=== PATIENT | female | born 1945 | race Caucasian/White ===

== ENCOUNTER → 2016-12-28 | Day surgery (SDC) | payer MEDICARE ==
[~2016-12-28] VITALS: Ht 188 cm; Wt 82.0 kg
[~2016-12-28] MED LIST: KLO5T PO; LISI10TA PO; Sodium Chloride LOK Flush 10 mL Syringe IV PRN; [UNRECOGNIZED DRUG - CODE] RC; fentaNYL-PF 50 mCg/mL 2 mL Inj IVPUSH PRN
[2016-12-28 10:07] VITALS: BP 118/73; PULSE 67; RESP 16; O2SAT 100
[2016-12-28] MEDS: 0.9% Sodium Chloride 1,000 ML IV SCH ×2 (10:44→11:00)
[2016-12-28 11:12] VITALS: BP 134/64; PULSE 73; RESP 16; O2SAT 99
[2016-12-28 11:31] VITALS: BP 160/85; PULSE 67; RESP 16; O2SAT 97
--- NOTE | 2016-12-28 11:48 | ENDO ---
[address] [address] ENDOSCOPY PROCEDURE PATIENT: PEGGY ROMERO : 1945 MR#: [id number] ADMIT: 12/28/2016 JOB ID: [id number] DATE OF SERVICE: 12/28/2016 PROCEDURE PERFORMED: Colonoscopy. INDICATIONS: Abdominal pain. History of ulcerative proctitis. ASA CLASSIFICATION: The patient's ASA classification is II. MALLAMPATI SCORE: Mallampati score was 2. MEDICATIONS: 1. Versed 4 mg. 2. Fentanyl 75 mcg. INSTRUMENT USED: PCF-H180AL. PREPARATION QUALITY: Fair. PROCEDURE DETAILS: After informed consent was obtained, the patient was brought into the GI suite, where he was placed on oxygen via nasal cannula and monitored with continuous pulse oximeter, telemetry, and blood pressure monitoring. A time-out was performed. Then, he was placed in the left lateral decubitus position and medications were administered for sedation. Digital rectal exam with palpation of the prostate was performed which was unremarkable. The colonoscope was then inserted into the rectum and advanced under direct visualization to the terminal ileum, which was identified by the presence of the ileocecal valve and villous appearing mucosa of the terminal ileum. Once the terminal ileum was reached, the colonoscope was withdrawn back into the rectum, as the mucosa and lumen were examined. In the rectum, retroflexion was performed. Following retroflexion, remaining air in the rectum was suctioned, and the procedure was completed. FINDINGS: 1. Normal appearing terminal ileum. Multiple random biopsies were obtained. 2. The colon mucosa from the cecum to approximately 25 cm appeared normal. Multiple random biopsies were obtained. 3. From 25 cm extending to the distal rectum the mucosa had a granular, erythematous appearance. There was loss of normal vascular pattern. Multiple random biopsies were obtained. IMPRESSION: Ulcerative sigmoid proctitis. RECOMMENDATIONS: 1. Rowasa enemas, and a short course of hydrocortisone enemas. 2. Follow up in GI clinic. COMPLICATIONS: None. ESTIMATED BLOOD LOSS: Less than 5 mL.
--- NOTE | 2017-01-03 11:23 | PATH ---
SURGICAL PATHOLOGY Attending Physician:Anyi Galindo CASE STATUS: Signed Out PATIENT NAME: PEGGY ROMERO PID: [id number] : 1945 DATE COLLECTED:12/28/2016 00:00 SPECIMEN: 1: Ileum, Biopsy 2: Colon, Biopsy 3: Colon, Biopsy 4: Colon, Biopsy 5: Rectum, Biopsy CLINICAL HISTORY: 1). TERMINAL ILEUM BIOPSY 2). RIGHT COLON BIOPSY 3). TRANSVERSE COLON BIOPSY 4). LEFT COLON BIOPSY 5). RECTUM BIOPSY FINAL DIAGNOSIS: 1. Terminal Ileum Biopsy: Fragments of normal appearing terminal ileum mucosa. Negative for granulomas. Negative for significant inflammation, dysplasia and malignancy. 2, 3, 4. Colon Biopsies, Right Colon, Transverse Colon and Left Colon: Fragments of normal appearing colon mucosa in all three specimens. Negative for evidence of significant architectural distortion. Negative for significant inflammation, dysplasia and malignancy. 5. Rectum Biopsy: Diffuse, chronic active proctitis. Negative for dysplasia and malignancy. ICD10: K62.89 GROSS DESCRIPTION: The specimen is received in five formalin filled containers labeled with the patient's name. 1). The specimen is sublabeled "terminal ileum" and consists of 3 portions of tissue which aggregate to 0.2 x 0.2 x 0.2 CM. The specimen is entirely submitted in cassette 1A. 2). The specimen is sublabeled "right colon" and consists of 3 portions of tissue which aggregate to 0.3 x 0.2 x 0.2 CM. The specimen is entirely submitted in cassette 2A. 3). The specimen is sublabeled "transverse colon" and consists of multiple tiny portions of tissue which aggregate to 0.3 x 0.3 x 0.3 CM. The specimen is entirely submitted in cassette 3A. 4). The specimen is sublabeled "left colon" and consists of 5 portions of tissue which aggregate to 0.4 x 0.4 x 0.2 CM. The specimen is entirely submitted in cassette 4A. 5). The specimen is sublabeled "rectum" and consists of multiple portions of tissue which aggregate to 0.3 x 0.3 x 0.3 CM. The specimen is entirely submitted in cassette 5A. 12/29/2016 [facility] ICD-9 CODES: CPT CODES: 1: 30661 2: 78954 3: 24918 4: 50258 5: 41768 Electronically Signed Out Angel George MD [facility] [address], [place] [address] Technical component performed at [facility], [address], [place], [address]
== END | disposition home or self-care (01) ==
LOC: END 00:57
PROVIDERS: ATTEND Internal Medicine Gastroenterology
DX: K62.89 Other specified diseases of anus and rectum (principal); K51.90 Ulcerative colitis, unspecified, without complications; R10.9 Unspecified abdominal pain
CPT/HCPCS: 45380; G0500; J2250; J3010; J7030